=== PATIENT | male | born 1945 | race Caucasian/White ===

== ENCOUNTER 2019-01-06 05:16 | Emergency (ER) | payer OTHER, SELFPAY ==
[2019-01-06 05:21] VITALS: BP 182/93; PULSE 75; RESP 16; TEMP 36.7; O2SAT 96
--- NOTE | 2019-01-06 05:55 | DI.CT_ITS ---
SYMPTOM/DIAGNOSIS: FALL, SCALP LACERATION, R/O BLEED CT BRAIN: Noncontrast. No priors. The ventricles and sulci are consistent with the patient's age. No acute intracranial hemorrhage, midline shift or mass effect is identified. No acute territorial infarct is appreciated. There is a mucus retention cyst or polyp in the left maxillary sinus. The visualized paranasal sinuses are otherwise clear as are the mastoid air cells. The calvarium is intact. IMPRESSION: No acute intracranial process.
--- NOTE | 2019-01-06 06:00 | ED.GENADUL_ITS ---
Discharge Plan Disposition Patient Disposition: HOME Condition: Good Discharge Details Chief Complaint: Laceration Clinical Impression: Laceration of scalp Primary Care Provider: REGGIE HAMM ED Provider: Jamie Arora Home Meds and New Rx's Prescriptions: No Action aspirin [Aspirin Low-Strength] 81 MG tablet,chewable 1 tab PO DAILY RF: 0 prasterone (dhea) 25 MG capsule 25 mg PO DAILY RF: 0 ascorbic acid (vitamin C) [Vitamin C With Renay Hips] 1,000 MG tablet extended release 1,000 mg PO DAILY RF: 0 coenzyme Q10 [Co Q-10] 150 MG capsule 150 mg PO DAILY RF: 0 calcium carbonate [Oyster Shell Calcium 500] 1.25 GM tablet 1 tab PO BID RF: 0 chondroitin sulfate A [Chondroitin Sulfate] 250 MG capsule 1 cap PO DAILY RF: 0 omega 2-knc-aim-fish oil [EPA-DHA 720] 1 EACH capsule 3 tab PO DAILY RF: 0 cholecalciferol (vitamin D3) 5,000 UNIT tablet 5,000 units PO DAILY RF: 0 Cataplex E2 12 cap PO DAILY RF: 0 Discharge Instructions Instructions: Laceration (ED), Staple Care (ED) Additional Instructions: He suffered a laceration to her scalp. The chester will need to be removed in the next 7 to 10 days. If you come back here it is free. Please leave the dressing on for 48 hours, then you may remove and begin cleaning the wound at least twice a day with soap and water. Continue to apply antibiotic ointment. Do not directly soak the area. Watch for any signs of infection and return if any increasing redness, swelling, pain, drainage. If you notice any worsening of your symptoms, or any new symptoms such as vomiting, diarrhea, fever, chills, shortness of breath, chest pain, numbness, weakness, or fainting , please return immediately to the emergency department for reevaluation. Please follow up with your primary care provider as soon as possible for reassessment and reevaluation. As always, it was a pleasure participating in your medical care today. Referrals: REGGIE HAMM [Primary Care Provider] - Medical Decision Making This is a pleasant 73-year-old male who presents for evaluation of scalp laceration. The patient states that earlier today he was working in his truck, his arms are full he lost his balance fell back and landed on his head on the ground. Suffered a laceration to his superior posterior scalp. He is on no blood thinners but does take a daily aspirin. Neuro exam demonstrates no neurologic abnormality. No cervical spine midline tenderness, no thoracic or lumbar midline tenderness. Laceration is 1 to 2 cm, and linear. No other significant abnormalities. His scalp laceration was vigorously cleaned and irrigated, patient did not want any numbing medication. 2 chester were placed with good wound edge reapproximation and stability. Head CT was ordered to rule out acute intracranial process secondary to the mechanism and the patient's age. Tetanus status is up-to-date. Currently pending CT scan. CT scan results have returned, no evidence of acute process or bleed or fracture. Patient scalp was bandaged appropriately. Discussed red flags which to return, the importance of close follow-up. I have extensively reviewed the treatment plan and discharge instructions with the patient and their family. I have addressed all patient concerns at this time. The patient and family was made aware of what symptoms to monitor for that would warrant a return to the emergency department. Discussed the plan with the patient and family, they demonstrate verbal understanding and agreement with our assessment and plan at this time. FINDINGS: Brain: Typical for age. No hemorrhage. No evidence of acute infarct. No mass. Ventricles: No ventriculomegaly. Bones/joints: Unremarkable. Sinuses: No sinus fluid. Mastoid air cells: Unremarkable. Soft tissues: Unremarkable. IMPRESSION: No acute intracranial abnormality. Thank you for allowing us to participate in the care of your patient. Dictated and Authenticated by: Ortiz Mast MD [facility] General Date/Time Provider Initiated Documentation: 01/06/19 05:26 . [facility] Narrative: This is a pleasant 73-year-old male with no significant past medical history except for coronary artery disease hypertension high cholesterol who presents today for evaluation of scalp laceration. The patient states that he was working in his truck early this morning when his hands were full, he leaned back loss balance and fell and hit his head on the ground. He denies any loss of consciousness, he states he can recall the entire event. He is not on any blood thinners. Aside for the cut to his scalp he denies any other complaints. Aside from mild headache he denies any neck pain, arm chest or shoulder pain. He denies any other modifying factors. Related Data Home Medications Medication Instructions Recorded Confirmed aspirin [Aspirin Low-Strength] 1 tab PO DAILY 03/27/13 09/25/17 Cataplex E2 12 cap PO DAILY 07/21/15 09/25/17 ascorbic acid (vitamin C) [Vitamin 1,000 mg PO DAILY 07/21/15 09/25/17 C With Renay Hips] calcium carbonate [Oyster Shell 1 tab PO BID 07/21/15 09/25/17 Calcium 500] cholecalciferol (vitamin D3) 5,000 units PO DAILY 07/21/15 09/25/17 chondroitin sulfate A [Chondroitin 1 cap PO DAILY 07/21/15 09/25/17 Sulfate] coenzyme Q10 [Co Q-10] 150 mg PO DAILY 07/21/15 09/25/17 omega 5-tut-tdw-fish oil [EPA-DHA 3 tab PO DAILY 07/21/15 09/25/17 720] prasterone (dhea) 25 mg PO DAILY 07/21/15 09/25/17 Allergies Allergy/AdvReac Type Severity Reaction Status Date / Time shellfish derived Allergy Severe Anaphylaxsi Unverified 01/06/19 05:24 s venom-honey bee Allergy Severe Anaphylaxsi Unverified 01/06/19 05:24 [bee venom (honey bee)] s Penicillins Allergy Unknown Unverified 01/06/19 05:24 General Stated Complaint: Laceration RIKKI: 4 Review of Systems Review of Systems All systems reviewed & are unremarkable except as noted in HPI and below PFSH Medical History (Updated 01/06/19 @ 05:28 by Maxine Alcantara) Hypertension (Chronic) Social History Smoking/Tobacco Use Status: Never Alcohol Intake: never Drug use: Never Substance use type: does not use Do you feel safe in your relationship?: Yes Exam Narrative Exam Narrative: 1.Const: Well-nourished, Well-developed, appearing stated age 2.Eyes: PERRL, no conjunctival injection, and symmetrical lids. 3.ENT: Atraumatic external nose and ears. Moist MM. Neck: Symmetric, trachea midline, No thyromegaly. There is no evidence of raccoon eyes, archuleta sign, CSF rhinorrhea, mastoid tenderness, cranial crepitus, hemotympanum, exophthalmos, or hyphema. Patient demonstrates intact dentition with no signs of tooth avulsion or fracture, no signs of jaw deformity, no evidence of a LeFort's fracture, with an intact palate, nose and orbital region. There is no evidence of a nasal septal hematoma. No proptosis. Jaw closes symmetrically. Airway is clear. 4.CVS: +S1/S2, No murmurs or gallops. Peripheral pulses 2+ and equal in all extremities. Brisk capillary refill in all extremities. 5.RESP: Unlabored respiratory effort. Clear to auscultation bilaterally. No wheezes rales or rhonchi 6.GI: Soft, Nontender/Nondistended, No hepatosplenomegaly. No guarding or rebound. 7.MSK: Normocephalic/Atraumatic, Extremities w/o deformity or ttp No cyanosis or clubbing, Normal movement of all extremities 8.Skin: Warm, Dry. No rashes or lesions. 1.5 cm linear laceration on the patient's superior posterior scalp. No active bleeding. No evidence of deep tissue abnormalities. No evidence of deep tissue structure or bone involvement 9.Neuro: supervisor forming and tempering II-XII grossly intact. Sensation grossly intact, no focal neurologic deficits. All 6 cardinal planes of vision are fully intact. No evidence of rotatory or vertical nystagmus. The patient demonstrated a normal gkssns-zzmy-koiskx, good dexterity. There was no evidence of dysdiadochokinesia. Patient was able to ambulate without difficulty. There was no wide-based gait. Romberg, and ocsa-mf-eqxy are both normal on testing. Sensation was intact bilaterally as well as muscle strength bilaterally for all extremities. Patient was able to verbalize butter cup with no slurring, or miss pronunciation. 10.Psych: (AAO) x3. Appropriate mood and affect Course Vital Signs Temperature 36.7 C 01/06/19 05:21 Pulse 75 01/06/19 05:21 Respiratory Rate 16 01/06/19 05:21 Blood Pressure 182/93 H 01/06/19 05:21 Pulse Oximetry 96 01/06/19 05:21 Temperature 36.7 C 01/06/19 05:21 Temperature Source Oral 01/06/19 05:21 Pulse 75 01/06/19 05:21 Respiratory Rate 16 01/06/19 05:21 Respiratory Effort Non-Labored 01/06/19 05:22 Blood Pressure 182/93 H 01/06/19 05:21 Pulse Oximetry 96 01/06/19 05:21 Pain Level 0 01/06/19 05:28
--- NOTE | 2019-01-06 06:15 | DI.VRAD_ITS ---
EXAM: CT Head Without Contrast EXAM DATE/TIME: 01/06/2019 5:32 AM CLINICAL HISTORY: 73 years old, male; Injury or trauma; Initial encounter; Blunt trauma (contusions or hematomas); Consciousness not specified; Injury date: Fall, scalp laceration, R/O bleed; Injury details: Fell and hit head, laceration on top of head TECHNIQUE: Imaging protocol: Computed tomography images of the head without contrast. Coronal and sagittal reformatted images were created and reviewed. Radiation optimization: All CT scans at this facility use at least one of these dose optimization techniques: automated exposure control; mA and/or kV adjustment per patient size (includes targeted exams where dose is matched to clinical indication); or iterative reconstruction. COMPARISON: No relevant prior studies available. FINDINGS: Brain: Typical for age. No hemorrhage. No evidence of acute infarct. No mass. Ventricles: No ventriculomegaly. Bones/joints: Unremarkable. Sinuses: No sinus fluid. Mastoid air cells: Unremarkable. Soft tissues: Unremarkable. IMPRESSION: No acute intracranial abnormality. Dictated and Authenticated by: Ortiz Mast MD. Ordering:AIDEE Ayala MD
== END 2019-01-06 06:22 | disposition home or self-care (01) ==
PROVIDERS: Emergency Provider Student in an Organized Health Care Education/Training Program; PCP Internal Medicine
DX: S01.01XA Laceration without foreign body of scalp, initial encounter (principal); W01.0XXA Fall on same level from slipping, tripping and stumbling without subsequent striking against object, initial encounter
CPT/HCPCS: 12001; 99284; 70450

== ENCOUNTER 2019-01-14 13:40 | Emergency (ER) | payer SELFPAY ==
--- NOTE | 2019-01-14 13:43 | W.ED.GENAD ---
Discharge Plan Disposition Patient Disposition: HOME Condition: Good Discharge Details Chief Complaint: SutureRem Clinical Impression: Removal of staple Primary Care Provider: Grady Gutierrez ED Provider: Jamie Arora Home Meds and New Rx's Prescriptions: No Action aspirin [Aspirin Low-Strength] 81 MG tablet,chewable 1 tab PO DAILY RF: 0 prasterone (dhea) 25 MG capsule 25 mg PO DAILY RF: 0 ascorbic acid (vitamin C) [Vitamin C With Renay Hips] 1,000 MG tablet extended release 1,000 mg PO DAILY RF: 0 coenzyme Q10 [Co Q-10] 150 MG capsule 150 mg PO DAILY RF: 0 calcium carbonate [Oyster Shell Calcium 500] 1.25 GM tablet 1 tab PO BID RF: 0 chondroitin sulfate A [Chondroitin Sulfate] 250 MG capsule 1 cap PO DAILY RF: 0 omega 9-nbd-nkn-fish oil [EPA-DHA 720] 1 EACH capsule 3 tab PO DAILY RF: 0 cholecalciferol (vitamin D3) 5,000 UNIT tablet 5,000 units PO DAILY RF: 0 Cataplex E2 12 cap PO DAILY RF: 0 Discharge Instructions Additional Instructions: Cassatt were removed. There is no evidence of infection or drainage. Your laceration is healing very well. If you notice any worsening of your symptoms, or any new symptoms such as vomiting, diarrhea, fever, chills, shortness of breath, chest pain, numbness, weakness, or fainting , please return immediately to the emergency department for reevaluation. Please follow up with your primary care provider as soon as possible for reassessment and reevaluation. As always, it was a pleasure participating in your medical care today. Referrals: Grady Gutierrez [Primary Care Provider] - Medical Decision Making This is a 73-year-old male who presents today for evaluation of staple removal. 1 week ago the patient had a laceration to his scalp. Imaging was negative. He has been doing extremely well since then, no dizziness or headache no drainage. Exam demonstrates well-healed laceration site. 2 chester were removed without incident. Patient tolerated this well. He will be discharged home. I have extensively reviewed the treatment plan and discharge instructions with the patient. I have addressed all patient concerns at this time. The patient was made aware of what symptoms to monitor for that would warrant a return to the emergency department. Discussed the plan with the patient, they demonstrate verbal understanding and agreement with our assessment and plan at this time. HPI General Date/Time Provider Initiated Documentation: 01/14/19 13:41. HPI Narrative: This is a 73-year-old male with who presents today for evaluation of staple removal. 1 week ago the patient hit his head on a dump truck, and lacerated his scalp. Imaging was negative for any acute process. 2 chester were placed at this time. He returns for removal of them. He denies any redness or drainage. No headache or dizziness. He states that he has been doing great. No other complaints modifying factors at this time. Related Data Home Medications Medication Instructions Recorded Confirmed aspirin [Aspirin Low-Strength] 1 tab PO DAILY 03/27/13 09/25/17 Cataplex E2 12 cap PO DAILY 07/21/15 09/25/17 ascorbic acid (vitamin C) [Vitamin 1,000 mg PO DAILY 07/21/15 09/25/17 C With Renay Hips] calcium carbonate [Oyster Shell 1 tab PO BID 07/21/15 09/25/17 Calcium 500] cholecalciferol (vitamin D3) 5,000 units PO DAILY 07/21/15 09/25/17 chondroitin sulfate A [Chondroitin 1 cap PO DAILY 07/21/15 09/25/17 Sulfate] coenzyme Q10 [Co Q-10] 150 mg PO DAILY 07/21/15 09/25/17 omega 5-pwe-ymk-fish oil [EPA-DHA 3 tab PO DAILY 07/21/15 09/25/17 720] prasterone (dhea) 25 mg PO DAILY 07/21/15 09/25/17 Allergies Allergy/AdvReac Type Severity Reaction Status Date / Time shellfish derived Allergy Severe Anaphylaxsi Unverified 01/06/19 05:24 s venom-honey bee Allergy Severe Anaphylaxsi Unverified 01/06/19 05:24 [bee venom (honey bee)] s Penicillins Allergy Unknown Unverified 01/06/19 05:24 General RIKKI: 4 Review of Systems Review of Systems All systems reviewed & are unremarkable except as noted in HPI and below [facility] Medical History (Updated 01/06/19 @ 05:28 by Maxine Alcantara) Hypertension (Chronic) Social History Smoking/Tobacco Use Status: Never Alcohol Intake: never Drug use: Never Substance use type: does not use Do you feel safe at home: Yes Do you feel safe in your relationship?: Yes Exam Narrative Exam Narrative: 1.Const: Well-nourished, Well-developed, appearing stated age 2.Eyes: PERRL, no conjunctival injection, and symmetrical lids. 3.ENT: Atraumatic external nose and ears. Moist MM. Neck: Symmetric, trachea midline, No thyromegaly. 4.CVS: +S1/S2, No murmurs or gallops. Peripheral pulses 2+ and equal in all extremities. Brisk capillary refill in all extremities. 5.RESP: Unlabored respiratory effort. Clear to auscultation bilaterally. No wheezes rales or rhonchi 6.GI: Soft, Nontender/Nondistended, No hepatosplenomegaly. No guarding or rebound. 7.MSK: Normocephalic/Atraumatic, Extremities w/o deformity or ttp No cyanosis or clubbing, Normal movement of all extremities 8.Skin: Warm, Dry. Scalp lesion is well-healed. Excellent wound edge reapproximation and healing. No evidence of dehiscence. No signs of cellulitis or bleeding. 9.Neuro: vice president safety II-XII grossly intact. Sensation grossly intact, no focal neurologic deficits. 10.Psych: (AAO) x3. Appropriate mood and affect
--- NOTE | 2019-01-14 13:44 | NUR.NOTE ---
Nursing Note: pt here for suture removal
[2019-01-14 13:45] VITALS: PULSE 88; RESP 15; TEMP 37; O2SAT 99
[2019-01-14 13:46] VITALS: PULSE 88; RESP 15; TEMP 37; O2SAT 99
== END 2019-01-14 14:09 | disposition home or self-care (01) ==
LOC: ER 14:18
PROVIDERS: Emergency Provider Student in an Organized Health Care Education/Training Program; PCP Internal Medicine
DX: S00.11XD Contusion of right eyelid and periocular area, subsequent encounter (principal); W01.0XXD Fall on same level from slipping, tripping and stumbling without subsequent striking against object, subsequent encounter; Z48.02 Encounter for removal of sutures

== ENCOUNTER 2019-04-21 16:52 | Outpatient (REF) | payer MEDICARE, SELFPAY ==
[2019-04-21 19:07] LABS: ALT 31 U/L (16-63); AST 21 U/L (15-37); Albumin 3.7 g/dL (3.4-5.0); Alkaline Phosphatase 73 U/L (46-116); Amylase 20 U/L (25-115); Anion Gap 4.7 mmol/L (3-11); BUN 26 mg/dL (7-18); Bilirubin, Total 0.9 mg/dL (0.2-1.0); CO2 28.3 mmol/L (21.0-32.0); CREATININE 1.15 mg/dL (0.70-1.30); Calcium 8.9 mg/dL (8.5-10.1); Chloride 105 mmol/L (98-107); Glucose 109 mg/dL (70-100); Lipase 101 U/L (73-393); Potassium 3.9 mmol/L (3.5-5.1); Sodium 138 mmol/L (136-145); Total Protein 6.6 g/dL (6.4-8.2)
[2019-04-21 19:34] LABS: HGB 14.7 g/dL (13.5-17.5); Mean Corp. HGB Concentration 34.2 g/dL (32.0-36.0); Mean Corpuscular Hemoglobin 33.4 pg (27.0-33.0); Mean Corpuscular Volume 97.7 fL (80-95); Mean Platelet Volume 9.3 fL (8.0-11.0); Platelet Count 239 x1000/uL (130-400); RBC Distribution Width 12.7 % (11.8-14.1); White Blood Cell Count 6.77 k/cumm (4.4-10.8)
== END 2019-04-21 17:12 ==
LOC: NCHCN 16:52
PROVIDERS: PCP Internal Medicine; Visit Provider Nurse Practitioner Family
DX: I10 Essential (primary) hypertension (principal); R10.9 Unspecified abdominal pain
CPT/HCPCS: 80053; 83690; 85027; 82150

== ENCOUNTER 2019-05-01 01:23 | Outpatient (CLI) | payer MEDICARE, SELFPAY ==
--- NOTE | 2019-05-01 09:10 | DI.CT_ITS ---
EXAM: CT ABDOMEN PELVIS W CLINICAL HISTORY: FAMILY H/O COLON CA,? MAS ABD PAIN, R10.9,INTERMITTENT NAUSEA,VOMITING,DIARRHEA TECHNIQUE: Imaging Protocol: Axial computed tomography images with coronal and sagittal reformatted images were created and reviewed CONTRAST MATERIAL: Intravenous: Omnipaque 350 Contrast volume:100 mL contrast route:IV - Oral: Yes COMPARISON: No exams were available for comparison FINDINGS: ABDOMEN: There is patient motion artifact which degrades the images. Lung Bases: Normal where visualized. Liver: Normal density. There is an area of decreased attenuation in the anterior segment of the right lobe of the liver. This is too small for further characterization. The liver is otherwise unremarka ble. The portal, superior mesenteric and splenic veins are patent. Gallbladder and biliary tract: There is a stone seen in the region of the neck of the gallbladder. T here is no biliary ductal dilatation. Pancreas: Normal density, no abnormal calcifications or inflammatory process. Spleen: Normal. Kidneys: Normal size, contour and axis. No radiodense stones or obstructive uropathy. There are tiny hypodensities seen within the left kidney likely reflecting cysts. No solid renal mass is present. Incidental note is made of a circumaortic left renal vein. Adrenal glands: No masses seen. Abdominal Aorta: Abdominal portion non-dilated. Atherosclerosis is present. PELVIS: Bladder: The bladder is distended and demonstrates nonspecific wall thickening. Bowel: No obstruction or bowel wall thickening. There are scattered diverticula seen in the colon. N o evidence of acute diverticulitis. There is a normal appendix in the right lower quadrant. No evid ence of acute appendicitis. No evidence of an obstructing bowel mass is seen. Peritoneal cavity: There is increased stranding seen in the left upper pelvic mesentery. This may re present a mild inflammatory process. No focal fluid collection is seen to suggest an abscess. No si gnificant ascites or pneumoperitoneum is present. Bones: Multilevel degenerative changes are present. If symptomatic further imaging may be performed. Reproductive organs: The prostate gland is mildly enlarged. Lymph nodes: Unremarkable. Impression: 1. No evidence of a bowel mass or obstruction. 2. Colonic diverticulosis but no evidence of acute diverticulitis. 3. Mild stranding in the mesentery in the pelvis. This may represent a mild inflammatory process. No abscess or free air. 4. Cholelithiasis. No evidence of acute cholecystitis. 5. Hypodensity in the right lobe of the liver. It is too small for further characterization. DATA REPOSITORY: All CT scans at this facility are submitted to the National Radiology Data Registry (NRDR) Dose Index Registry (DIR) with the [employer] (ACR). RADIATION OPTIMIZATION: All CT scans at this facility use at least one of these dose optimization te chniques: automated exposure control; mA and/or kV adjustment per patient size (includes targeted exa ms where dose is matched to clinical indication); or iterative reconstruction.
[2019-05-01] MEDS: Omnipaque 350 MG/ML 100 ML BTL IJ (09:19)
[2019-05-01] MEDS: Breeza Beverage 473 ML BTL PO (09:20)
== END 2019-05-01 01:43 ==
PROVIDERS: PCP Internal Medicine; Visit Provider Nurse Practitioner Family
DX: R10.30 Lower abdominal pain, unspecified (principal); R11.2 Nausea with vomiting, unspecified; R19.7 Diarrhea, unspecified; Z80.0 Family history of malignant neoplasm of digestive organs; K57.30 Diverticulosis of large intestine without perforation or abscess without bleeding; K80.20 Calculus of gallbladder without cholecystitis without obstruction; K76.89 Other specified diseases of liver
CPT/HCPCS: 99203; 99214; 74177; J3490

== ENCOUNTER 2019-05-12 06:06 | Day surgery (SDC) | payer MEDICARE, SELFPAY ==
[2019-05-12 06:24] VITALS: BP 125/77; PULSE 64; RESP 16; TEMP 36; O2SAT 97
--- NOTE | 2019-05-12 06:24 | W.UPDATEHP ---
Date of service: 05/12/19 Time of Service: 06:24 Updated H&P Refer to Most Recent Clinic Note/H&P Dated: 05/01/19 H&P was reviewed,patient examined No change has occured in patient's condition since last H&P completed
--- NOTE | 2019-05-12 06:25 | COLE_ITS ---
Date of service: 05/12/19 Time of Service: 07:30 Colonoscopy Report Date of procedure: 05/12/19 Pre-op diagnosis general: Colon Cancer Screening,Change in bowel habits, pain, Fhx of colon CA Post-op diagnosis procedure note: same (and mild long-diverticulosis) Procedure: Colonoscopy Surgeon: Rach Powers Anesthesia proc note operative: other (General/ ASA 2/Elida Gabriel, CHEL) Estimated blood loss (mL): 0 Pathology: none sent Complications: None Disposition: same day Indications: Mr. Jhaveri is a pleasant 74 year old male who started experiencing lower abdominal pain about 2 months ago. He tells me that it feels like someone kicked him in the stomach. It is always painful with increase his in severity at times. He has not noted a pattern. Increased activity or exercise does not seem to make a difference. 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 He does not complain of any nausea or vomiting. His pain is localized to the suprapubic and mostly left lower quadrant. The other change has been his bowel movements. He has been more constipated in the last 2 months. He only has a bowel movement every other day. His tells me that he has changed his diet and is eating less roughage right now because of his job. He does sometimes complain of diarrhea which will only last a day and then he is back to having constipation. He has noted no urinary issues. He feels like he can empty his bladder without any issues. He has not noted any hematuria, hematochezia or melena. He has not had any unintentional weight loss. His last colonoscopy was in 2012. He does have a history of colon cancer in his father at age 88. He was supposed to have a colonoscopy in 2018 but has not gotten that yet. His past medical history is significant for cardiovascular disease. He tells me 12 years ago he had to have several stents placed. He was on anticoagulation after that but currently is only taking a baby aspirin. He denies any chest pain at rest or on exertion. He denies any shortness of breath. He did have a CT scan done today which showed some increased stranding in the left upper pelvic mesentery. There is no focal fluid collection seen with this. I did discuss the findings with the radiologist was not sure what to make of it. He says it almost looks like a fatty infarct. This area of inflammation is nowhere near the bowel or bladder. He does not see any inguinal hernias. Risks, benefits and complications have been reviewed. Complications include but are not limited to bleeding, pain, perforation, missed small lesion/polyp, sore throat, aspiration and adverse reaction to the medications. Questions were entertained and answered to their satisfaction and they wished to proceed. No guarantees were given or implied. Prep: Miralax/Dulcolax Procedure Start Time: 07:30 Procedure End Time: 07:45 Retraction Time: 12 minutes Findings: Mild long diverticulosis of the entire large bowel Procedure Description: After informed consent was obtained the patient was taken to the procedure room and placed in a left decubitous position. Monitors were applied and a time out was done. The patients name, date of , procedure, allergies to medications and metal in their body was reviewed. The patient was then sedated. Once sedated and comfortable a rectal exam was done. External exam was normal. Internal exam revealed a normal sphincter tone and no palpable masses. The prostate felt smooth. The scope was then introduced and retro-flexed. No internal hemorrhoids, masses or polyps were identified on retro-flexion. The scope was then advanced to the cecum without difficulty. The TI and appendiceal orifice were identified. The prep was good. The scope was then slowly retracted over 12 minutes back into the rectum. There were no polyps. There was mild diverticulosis of the large bowel. The scope was removed and the patient was woken up and taken back to Same day surgery in stable condition. The patient tolerated the procedure well and there were no immediate complications. Follow up: The patient should follow up in 10 years unless they develop changes in bowel habits or other new gastrointestinal complaints.
--- NOTE | 2019-05-12 06:27 | W.PM.DSUDISC ---
Discharge Plan Disposition Patient Disposition: HOME Condition: Good Discharge Details Reason For Visit: Colonoscopy Attending Provider: Rach Powers Primary Care Provider: Grady Gutierrez Home Meds and New Rx's Prescriptions: Continued lisinopril 20 mg tablet 20 mg PO DAILY RF: 0 vitamin B complex Capsule 1 cap PO DAILY RF: 0 epinephrine 0.15 mg/0.3 mL auto-injector 0.3 mg IM ONCE RF: 0 Adult 50+ Probiotic 4 billion cell capsule 4,000 mmu cells PO DAILY RF: 0 aspirin [Aspirin Low-Strength] 81 MG tablet,chewable 1 tab PO DAILY RF: 0 prasterone (dhea) 25 MG capsule 25 mg PO DAILY RF: 0 ascorbic acid (vitamin C) [Vitamin C With Renay Hips] 1,000 MG tablet extended release 1,000 mg PO DAILY RF: 0 Co Q-10 150 MG capsule 150 mg PO DAILY RF: 0 calcium carbonate [Oyster Shell Calcium 500] 1.25 GM tablet 1 tab PO BID RF: 0 EPA-DHA 720 1 EACH capsule 3 tab PO DAILY RF: 0 cholecalciferol (vitamin D3) 5,000 UNIT tablet 5,000 units PO DAILY RF: 0 Cataplex E2 12 cap PO DAILY RF: 0 Discharge Instructions Instructions: Colonoscopy (DC), Diverticulosis (DC), Constipation (DC) Additional Instructions: Findings: Mild diverticulosis Follow up: 10 years Please call if you develop: fevers >101.5 Nausea or Vomiting Abdominal pain that is not transient DAY SURGERY UNIT POST ENDOSCOPY INSTRUCTIONS 1. Because there will be medication in your system for the next 24 hours, you may feel a little sleepy. Your coordination will be affected. Therefore: a. Do not drive or operate dangerous equipment for 24 hours. b. Do not drink alcohol beverages for 24 hours (not even beer). c. Plan to go home and rest for the day. 2. Generally there are no restrictions on your activity after a day or so has gone by, but you may feel a bit fatigued for a few days. 3 After you arrive home you may have a light meal and return to a normal diet as you can tolerate it without feeling sick to your stomach. 4. After surgery, you may feel pain or discomfort. This should be only transient, but if it persists please contact your doctor. 5. If there are any questions regarding the findings of your procedure, please feel free to contact your doctor. 6. If you are unable to contact your doctor with a problem, contact the hospital at [phone]. 7. Continue all your regular medications unless directed otherwise. I understand the above instructions and have no questions. Signature of Patient or Responsible Adult Escort Date/Time Name of Responsible Adult Escort Signature of Nurse Date/Time Activity:: Activity as Tolerated Diet:: High Fiber diet Discharge Orders Discharge Orders: Discharge Order (Routine); Ordered 05/12/19 Ordered By: Rach Powers DS: Diagnosis Discharge Diagnosis (1) S/P colonoscopy: Status: Acute (2) Diverticulosis large intestine w/o perforation or abscess w/o bleeding: Status: Acute
[2019-05-12] MEDS: Lactated Ringers 1,000 ML 80 ML IV (06:46)
[2019-05-12] MEDS: Sodium Citrate 30 ML CUP (07:25)
[2019-05-12 08:25] VITALS: BP 130/87; PULSE 60; RESP 18; TEMP 36.5; O2SAT 96
== END 2019-05-12 08:35 | disposition home or self-care (01) ==
PROVIDERS: PCP Internal Medicine; Visit Provider Surgery
PROC: 0DJD8ZZ Inspection of Lower Intestinal Tract, Via Natural or Artificial Opening Endoscopic (ICD-10-PCS; CPT 45378; principal; 2019-05-12 07:30)
DX: R19.4 Change in bowel habit (principal); R10.30 Lower abdominal pain, unspecified; K57.30 Diverticulosis of large intestine without perforation or abscess without bleeding; Z80.0 Family history of malignant neoplasm of digestive organs; I10 Essential (primary) hypertension
CPT/HCPCS: 45378

== ENCOUNTER 2020-05-03 11:21 | Outpatient (REF) | payer MEDICARE, SELFPAY ==
[2020-05-07 11:53] LABS: Patient Race White; SARS-CoV-2 RNA Undetected (Undetected); SARS-CoV-2 Specimen Source Nasal
== END 2020-05-03 11:41 ==
LOC: NCHCN 11:21
PROVIDERS: PCP Internal Medicine; Visit Provider Nurse Practitioner Family
DX: Z11.59 Encounter for screening for other viral diseases (principal); Z01.818 Encounter for other preprocedural examination
CPT/HCPCS: U0003

== ENCOUNTER 2021-05-23 07:38 | Emergency (ER) | payer MEDICARE, SELFPAY ==
[2021-05-23 07:41] VITALS: BP 178/101; PULSE 75; RESP 20; TEMP 36.7; O2SAT 95
[2021-05-23 07:44] VITALS: RESP 20
--- NOTE | 2021-05-23 07:57 | ED.GENADUL_ITS ---
Discharge Plan Disposition Patient Disposition: HOME Condition: Stable Discharge Details Clinical Impression: Encounter for medical screening examination Primary Care Provider: Grady Gutierrez ED Provider: Mohinder Aponte Home Meds and New Rx's Prescriptions: Continued lisinopril 20 mg tablet 20 mg PO DAILY RF: 0 vitamin B complex Capsule 1 cap PO DAILY RF: 0 epinephrine 0.15 mg/0.3 mL auto-injector 0.3 mg IM ONCE RF: 0 Adult 50 Plus Probiotic 4 billion cell capsule 4,000 mmu cells PO DAILY RF: 0 aspirin [Aspirin Low-Strength] 81 MG tablet,chewable 1 tab PO DAILY RF: 0 prasterone (dhea) 25 MG capsule 25 mg PO DAILY RF: 0 Vitamin C With Renay Hips 1,000 MG tablet extended release 1,000 mg PO DAILY RF: 0 Co Q-10 150 MG capsule 150 mg PO DAILY RF: 0 calcium carbonate [Oyster Shell Calcium 500] 1.25 GM tablet 1 tab PO BID RF: 0 EPA-DHA 720 1 EACH capsule 3 tab PO DAILY RF: 0 cholecalciferol (vitamin D3) 5,000 UNIT tablet 5,000 units PO DAILY RF: 0 Cataplex E2 12 cap PO DAILY RF: 0 Discharge Instructions Additional Instructions: Your laboratory values and CT imaging do not reveal any obvious emergent process. CT imaging does not reveal any mass or asymmetric soft tissue process. Please watch for new or worsening symptoms and return to the ER for any concerns. Otherwise I would contact your primary care provider to discuss your ER visit and need for outpatient reevaluation. Medical Decision Making 76-year-old gentleman presents concerned that he has a fullness or lump to his right upper quadrant. Clinically he appears well, nontoxic. Abdomen is soft, nontender. I do not appreciate any obvious mass or asymmetry. Given his acute concern, will obtain IV access, routine screening laboratory values and a CT of his abdomen and pelvis with IV contrast for further evaluation of potential abdominal mass. Laboratory values and CT imaging unremarkable for obvious emergent process. Discussed findings with patient. He is relieved and has additional questions or concerns and is comfortable discharge. Standard discharge and return pr ecautions provided This documentation was generated using [employer] system, please disregard any oddities of phrase or misspellings. Medical Records Medical records reviewed: Yes I reviewed the patient's medical records. Imaging Data Radiologic Study: Attestation: I personally reviewed and interpreted this imaging study as follows: Imaging: CT Scan Radiologist's impression: CT ABDOMEN PELVIS W CLINICAL HISTORY [ Ruq mass/fullness ] [] TECHNIQUE Imaging Protocol: Axial computed tomography images with coronal and sagittal reformatted images were created and reviewed CONTRAST MATERIAL Intravenous: Omnipaque 350 Contrast volume:[100 mL] Oral: [No] COMPARISON [CR CHEST 2 VIEWS PA,LAT from 07/21/[address] ABDOMEN PELVIS W from 05/01/2019][] FINDINGS ABDOMEN: Lung Bases: [Normal where visualized.] [Coronary artery calcifications.] Liver: [Normal density.] [No measurable mass.] [There is no change in the area of decreased attenuation in the anterior segment of the right lobe of the liver.] Portal, Superior Mesenteric, and Splenic Veins: [Unremarkable.] [] Gallbladder and Biliary Tract: [There is a gallstone in the neck of the gallbladder. No biliary ductal dilatation. This is unchanged.] [] Pancreas: [Normal density, no abnormal calcifications or inflammatory process.] [] Spleen: [Normal.] [] Adrenals: [No masses seen.] [] Kidneys: [Normal size, contour and axis.] [No radiodense stones or obstructive uropathy.] [There is stable bilateral simple renal cysts. No follow-up is recommended.] [Note is made of a circum aortic left renal vein.] Abdominal Aorta: [Abdominal portion non-dilated.] [Atherosclerosis.] Bowel: [No obstruction or bowel wall thickening.] [Appendix is unremarkable.] [There is diverticulosis in the descending and sigmoid colon, but no evidence of acute diverticulitis. Duodenal diverticula are noted.] Peritoneal Cavity: [No ascites, collection or mesenteric inflammatory response.] [No free air.][] Lymph Nodes: [Within normal limits.] [] Bones: [Within normal limits for the patient's age.] [] Soft Tissues: [There is a small fat containing umbilical hernia.] [] PELVIS: Bladder: [The urinary bladder is incompletely distended. There is diffuse thickening of the wall of the urinary bladder. This may be due to underdistention, cystitis cannot be excluded.] [] Reproductive Organs: [Prostate gland is mildly enlarged.] [There is a large right and moderate left hydrocele.] Lymph Nodes: [Within normal limits.] [] Bones: [Within normal limits for the patient's age.] [] IMPRESSION [No acute abdominal or pelvic process. No evidence of an anterior abdominal wall or abdominal mass.] [Stable gallstone location. No biliary ductal dilatation. Colonic diverticulosis, but no evidence of acute diverticulitis. Thickening of the wall of the urinary bladder. This may be due to an underdistention, but cystitis cannot be excluded. Please correlate clinically. Bilateral scrotal hydroceles. Results of this exam have been verbally communicated with provider.] Lab Data Lab results reviewed: Yes I reviewed the patient's lab results. Labs: Laboratory Tests Range/Units 05/23/21 05/23/21 05/23/21 08:13 08:13 08:20 WBC (4.4-10.8) 10^3/uL 5.47 RBC (4.36-5.78) 10^6/uL 4.78 Hgb (13.5-17.5) g/dL 15.8 Hct (40.0-50.0) % 47.8 MCV (80-95) fL 100.0 H MCH (27.0-33.0) pg 33.1 H MCHC (32.0-36.0) % 33.1 RDW (11.8-14.1) % 12.3 Plt Count (130-400) 10^3/uL 215 MPV (8.0-11.0) fL 9.0 Immature Gran % 0.2 Neutrophils % 66.4 Lymphocytes % 23.2 Monocytes % 7.9 Eosinophils % 1.6 Basophils % 0.7 Nucleated RBC % % 0 Absolute Neutrophils (1.2-6.7) 10^3/uL 3.63 Absolute Lymphocytes (1.2-3.4) 10^3/uL 1.27 Absolute Monocytes (0.1-0.8) 10^3/uL 0.43 Absolute Eosinophils (0.0-0.7) 10^3/uL 0.09 Absolute Basophils (0.0-0.2) 10^3/uL 0.04 Sodium (136-145) mmol/L 141 Potassium (3.5-5.1) mmol/L 4.4 Chloride (98-107) mmol/L 106 Carbon Dioxide (21.0-32.0) mmol/L 27.2 Anion Gap (3-11) mmol/L 7.8 BUN (7-18) mg/dL 19 H Creatinine (0.70-1.30) mg/dL 1.1 Estimated GFR/1.73 m2 (mL/min/1.73m2) >= 60.00 Glucose (74-106) mg/dL 106 Calcium (8.5-10.1) mg/dL 9.1 Total Bilirubin (0.2-1.0) mg/dL 1.0 AST (15-37) U/L 21 ALT (16-63) U/L 38 Alkaline Phosphatase (46-116) U/L 78 Total Protein (6.4-8.2) g/dL 7.2 Albumin (3.4-5.0) g/dL 3.7 Lipase (73-393) U/L 84 Urine Color (Yellow) Yellow Urine Clarity (Clear) Clear Urine pH (5-8) 6.5 Ur Specific [place] (1.005-1.025) >= 1.030 H Urine Protein (Negative) mg/dL Negative Urine Ketones (Negative) mg/dL Negative Urine Blood (Negative) Negative Urine Nitrite (Negative) Negative Urine Bilirubin (Negative) Negative Urine Urobilinogen (Up TO 0.2) EU/dL 0.2 Ur Leukocyte Esterase (Negative) Negative Urine Glucose (Negative) mg/dL Negative HPI General Mode of arrival: ambulatory . Date/Time Provider Initiated Documentation: 05/23/21 07:49 . Limitations to Documentation: no limitations . Information obtained by: patient . HPI Narrative: This is a 76-year-old male, reports waking up around 2 or 3:00 this morning and noticing a large lump or mass to his right abdomen. He reports that he went to bed asymptomatic. He states that the mass is painless, no change of skin color surrounding the mass. He denies any recent trauma, fever, chest pain, shortness of breath, abdominal pain, nausea, vomiting or change in bowel or bladder function. He reports a hernia in the past in his groin but never anything across his abdomen. He is otherwise asymptomatic, has no additional questions or concerns. Related Data Home Medications Medication Instructions Recorded Confirmed aspirin [Aspirin Low-Strength] 1 tab PO DAILY 03/27/13 05/23/21 Cataplex E2 12 cap PO DAILY 07/21/15 05/12/19 Co Q-10 150 mg PO DAILY 07/21/15 05/23/21 EPA-DHA 720 3 tab PO DAILY 07/21/15 05/23/21 Vitamin C With Renay Hips 1,000 mg PO DAILY 07/21/15 05/23/21 calcium carbonate [Oyster Shell 1 tab PO BID 07/21/15 05/23/21 Calcium 500] cholecalciferol (vitamin D3) 5,000 units PO DAILY 07/21/15 05/23/21 prasterone (dhea) 25 mg PO DAILY 07/21/15 05/23/21 lisinopril 20 mg tablet 20 mg PO DAILY 04/24/19 05/23/21 vitamin B complex 1 cap PO DAILY 04/24/19 05/23/21 epinephrine 0.15 mg/0.3 mL 0.3 mg IM ONCE 05/01/19 05/23/21 injection,auto-injector lactobacillus combination no.9 4 4,000 mmu cells PO DAILY 05/01/19 05/23/21 billion cell capsule Allergies Allergy/AdvReac Type Severity Reaction Status Date / Time shellfish derived Allergy Severe Anaphylaxsi Unverified 05/23/21 07:48 s venom-honey bee Allergy Severe Anaphylaxsi Unverified 05/23/21 07:48 [bee venom (honey bee)] s Penicillins Allergy Unknown Unverified 05/23/21 07:48 General Stated Complaint: GenMedical RIKKI: 3 Review of Systems Constitutional Constitutional: Denies fever(s) Cardiovascular Cardiovascular: Denies chest pain and Denies dyspnea Respiratory Respiratory: Denies dyspnea Gastrointestinal Gastrointestinal: Denies abdominal pain, Denies constipation, Denies diarrhea, Denies nausea and Denies vomiting Genitourinary Genitourinary: Denies hematuria and Denies dysuria Musculoskeletal Musculoskeletal: Denies back pain Integumentary/Breasts Skin/Breast: Denies rash PFSH All Active Problems Encounter for medical screening examination (Acute) Diverticulosis large intestine w/o perforation or abscess w/o bleeding (Acute ~05/12/19) S/P colonoscopy (Acute ~05/12/19) Medical History Coronary artery disease Family history of colon cancer Hypertension Surgical History History of coronary artery stent placement 12 years ago History of inguinal hernia repair History of tonsillectomy Family History Father Colon cancer Social History Smoking/Tobacco Use Status: Never Smoking risk assessment performed?: Yes Alcohol Intake: never Drug use: Never Substance use type: does not use Do you feel safe at home: Yes Do you feel safe in your relationship?: Yes Exam Const General: cooperative, healthy appearing, comfortable and no acute distress Orientation: alert and awake HENMS Head: normal to inspection, normocephalic and atraumatic Eyes General: appearance normal, both eyes and all related structures Conjunctivae: conjunctivae normal Neck Neck: normal visual inspection, trachea midline and supple Resp Effort & Inspection: normal respiratory effort and able to speak in complete sentences Auscultation: clear to auscultation bilaterally Cardio Rate: regular rate Rhythm: regular rhythm GI Inspection: normal to inspection Palpation: soft, not firm, no guarding, no pulsatile masses and nontender Auscultation: normal bowel sounds Back/Spine/Pelvis Back: No back tenderness Skin General skin exam: no rashes or lesions noted Neuro General: patient alert, patient awake, moves all extremities and no focal motor deficits Cognition: normal cognition Sensory Exam: no sensory deficits noted Psych Appearance: grossly normal Mental Status: mental status grossly normal Course Vital Signs Vital signs: Vital Signs Temperature 36.7 C 05/23/21 07:41 Pulse 75 05/23/21 07:41 Respiratory Rate 20 05/23/21 07:41 Blood Pressure 178/101 H 05/23/21 07:41 Pulse Oximetry 95 05/23/21 07:41 Temperature 36.7 C 05/23/21 07:41 Temperature Source Oral 05/23/21 07:41 Pulse 75 05/23/21 07:41 Respiratory Rate 20 05/23/21 07:44 Respiratory Effort Non-Labored 05/23/21 07:44 Respiratory Depth Normal 05/23/21 07:44 Respiratory Pattern Normal 05/23/21 07:44 Blood Pressure 178/101 H 05/23/21 07:41 Blood Pressure Position Sitting 05/23/21 07:41 Pulse Oximetry 95 05/23/21 07:41 Oxygen Delivery Method Room Air 05/23/21 07:41 Oxygen Flow Rate 0 05/23/21 07:41 Pain Level 0 05/23/21 07:41
[2021-05-23 08:26] LABS: Abs Immature Grans 0.01 10^3/uL (0.0-0.06); Absolute Basophil Count 0.04 10^3/uL (0.0-0.2); Absolute Eosinophil Count 0.09 10^3/uL (0.0-0.7); Absolute Lymphocyte Count 1.27 10^3/uL (1.2-3.4); Absolute Monocyte Count 0.43 10^3/uL (0.1-0.8); Absolute Neutrophil Count 3.63 10^3/uL (1.2-6.7); Basophils % 0.7; Eosinophils % 1.6; HCT 47.8 % (40.0-50.0); HGB 15.8 g/dL (13.5-17.5); Immature Grans % 0.2; Lymphocytes % 23.2; MCH 33.1 pg (27.0-33.0); MCHC 33.1 % (32.0-36.0); Monocytes % 7.9; Neutrophils % 66.4; Nucleated RBC 0 %; Platelet Count 215 10^3/uL (130-400); RBC 4.78 10^6/uL (4.36-5.78); RDW 12.3 % (11.8-14.1); RDW-SD 46.1 fL; WBC 5.47 10^3/uL (4.4-10.8)
[2021-05-23 08:28] LABS: Bilirubin Negative (Negative); Blood Negative (Negative); Clarity Clear (Clear); Glucose Negative (Negative); Ketones Negative (Negative); Leukocyte Esterase Negative (Negative); Nitrite Negative (Negative); Specific Gravity >= 1.030 (1.005-1.025); Urobilinogen 0.2 EU/dL (Up TO 0.2); pH 6.5 (5-8)
[2021-05-23 08:40] LABS: ALT 38 U/L (16-63); AST 21 U/L (15-37); Albumin 3.7 g/dL (3.4-5.0); Alkaline Phosphatase 78 U/L (46-116); Anion Gap 7.8 mmol/L (3-11); BUN 19 mg/dL (7-18); CO2 27.2 mmol/L (21.0-32.0); CREATININE 1.1 mg/dL (0.70-1.30); Calcium 9.1 mg/dL (8.5-10.1); Chloride 106 mmol/L (98-107); Glucose 106 mg/dL (74-106); Lipase 84 U/L (73-393); Potassium 4.4 mmol/L (3.5-5.1); Sodium 141 mmol/L (136-145); Total Protein 7.2 g/dL (6.4-8.2)
[2021-05-23] MEDS: Omnipaque 350 MG/ML 100 ML BTL IJ (08:57)
[2021-05-23] MEDS: Normal Saline Flush 10 ML SYR IVP (08:59)
--- NOTE | 2021-05-23 09:05 | DI.CT_ITS ---
Exam(s) CT ABDOMEN PELVIS W EXAM: CT ABDOMEN PELVIS W CLINICAL HISTORY: Ruq mass/fullness TECHNIQUE: Imaging Protocol: Axial computed tomography images with coronal and sagittal reformatted images were created and reviewed CONTRAST MATERIAL: Intravenous: Omnipaque 350 Contrast volume:100 mL Oral: No COMPARISON: CR CHEST 2 VIEWS PA,LAT from 07/21/[address] ABDOMEN PELVIS W from 05/01/2019 FINDINGS: ABDOMEN: Lung Bases: Normal where visualized. Coronary artery calcifications. Liver: Normal density. No measurable mass. There is no change in the area of decreased attenuation in the anterior segment of the right lobe of the liver. Portal, Superior Mesenteric, and Splenic Veins: Unremarkable. Gallbladder and Biliary Tract: There is a gallstone in the neck of the gallbladder. No biliary ducta l dilatation. This is unchanged. Pancreas: Normal density, no abnormal calcifications or inflammatory process. Spleen: Normal. Adrenals: No masses seen. Kidneys: Normal size, contour and axis. No radiodense stones or obstructive uropathy. There is stable bilateral simple renal cysts. No follow-up is recommended. Note is made of a circum aortic left re nal vein. Abdominal Aorta: Abdominal portion non-dilated. Atherosclerosis. Bowel: No obstruction or bowel wall thickening. Appendix is unremarkable. There is diverticulosis in the descending and sigmoid colon, but no evidence of acute diverticulitis. Duodenal diverticula are noted. Peritoneal Cavity: No ascites, collection or mesenteric inflammatory response. No free air. Lymph Nodes: Within normal limits. Bones: Within normal limits for the patient's age. Soft Tissues: There is a small fat containing umbilical hernia. PELVIS: Bladder: The urinary bladder is incompletely distended. There is diffuse thickening of the wall of t he urinary bladder. This may be due to underdistention, cystitis cannot be excluded. Reproductive Organs: Prostate gland is mildly enlarged. There is a large right and moderate left hyd rocele. Lymph Nodes: Within normal limits. Bones: Within normal limits for the patient's age. IMPRESSION: 1. No acute abdominal or pelvic process. No evidence of an anterior abdominal wall or abdominal mass . 2. Stable gallstone location. No biliary ductal dilatation. 3. Colonic diverticulosis, but no evidence of acute diverticulitis. 4. Thickening of the wall of the urinary bladder. This may be due to an underdistention, but cystiti s cannot be excluded. Please correlate clinically. 5. Bilateral scrotal hydroceles. 6. Results of this exam have been verbally communicated with provider. RADIATION DOSE DELIVERED: 1,371.24mGy.cm Total DLP DATA REPOSITORY: All CT scans at this facility are submitted to the National Radiology Data Registry (NRDR) Dose Index Registry (DIR) with the [employer] ([employer]). RADIATION OPTIMIZATION: All CT scans at this facility use at least one of these dose optimization te chniques: automated exposure control; mA and/or kV adjustment per patient size (includes targeted exa ms where dose is matched to clinical indication); or iterative reconstruction.
== END 2021-05-23 10:18 | disposition home or self-care (01) ==
PROVIDERS: Emergency Provider Physician Assistant; PCP Internal Medicine
DX: R19.01 Right upper quadrant abdominal swelling, mass and lump (principal); Z71.1 Person with feared health complaint in whom no diagnosis is made
CPT/HCPCS: 36415; 80053; 83690; 99285; 74177; 81003; 85025; 99283; J3490

== ENCOUNTER → 2022-03-14 14:21 | Outpatient (BNVA) | payer MEDICARE, SELFPAY | PROVIDERS: PCP Internal Medicine; Referring Provider Internal Medicine; Visit Provider Student in an Organized Health Care Education/Training Program | DX: M70.21 Olecranon bursitis, right elbow (principal) | CPT/HCPCS: 99203; 99213 ==

== ENCOUNTER → 2025-04-30 09:21 | Outpatient (CLI) | payer BC, MEDICARE, SELFPAY ==
--- NOTE | 2025-04-30 11:13 | DI.RAD_ITS ---
Exam(s) XR ANKLE LT COMPLETE EXAM: XR ANKLE LT COMPLETE CLINICAL HISTORY: PAIN LT ANKLE AND JOINTS OF LT FOOT TECHNIQUE: 2D digital imaging was performed. Three views. COMPARISON: No exams were available for comparison FINDINGS: BONES: No acute fracture is present. No bony destructive lesion is seen. JOINTS:The ankle mortise is normally aligned. There is narrowing of the medial tibiotalar joint space. SOFT TISSUE: Normal vascular calcifications. IMPRESSION: Narrowing of the medial tibiotalar joint space. DATA REPOSITORY: RADIATION DOSE DELIVERED:
== END ==
LOC: DI 09:30
PROVIDERS: PCP Internal Medicine; Visit Provider Nurse Practitioner Family
DX: M25.572 Pain in left ankle and joints of left foot (principal); M25.872 Other specified joint disorders, left ankle and foot
CPT/HCPCS: 73610